=== PATIENT | female | born 1995 | race Caucasian/White ===

== ENCOUNTER → 2017-03-21 | Outpatient (CLI) | payer OTHER ==
--- NOTE | 2017-03-21 15:04 | CONS ---
CONSULTATION DATE OF SERVICE: 03/21/2017 21-year-old lady has been evaluated in the sleep center for significant excessive daytime sleepiness and for possible obstructive sleep apnea-hypopnea syndrome. HISTORY OF PRESENT ILLNESS/SLEEP WAKE EVALUATION: Patient usual sleep schedule on weekdays from 11:00 p.m. to 8:00 a.m. and on weekend from around 8:00 p.m. to 8 a.m. Sometimes she has problems with falling asleep, has TV set in bedroom. During the sleep she snores and wakes up from sleep every 2-3 hours with up to 2-3 episodes to nocturia. She may grind her teeth and wakes up with a dry mouth, panic attack, restless legs, sweating. In the morning she wakes up tired, falling asleep during the day, has problems with memory, concentration, depression, anxiety. Abie Sleepiness Scale significantly increased to 20. She feels sleepy even while she is driving the car. Positive history of hypnagogic hallucinations and possible cataplexy with numbness and tingling of her muscles in her face as a reaction on strong emotions and laughing. When she is taking naps, she may see weird dreams. PAST MEDICAL HISTORY: Positive for diabetes mellitus, bipolar, depression. SOCIAL HISTORY: Negative for smoking. Alcohol consumption occasional. FAMILY HISTORY: Hypertension, heart problems, hyperlipidemia, stroke, arthritis, asthma, sinus headaches, sleep apnea, snoring, in morning headaches, insomnia, acid reflux, diabetes, mental illness. MEDICATIONS: Different types of insulin, Zoloft, Abilify, Lamictal. PAST SURGICAL HISTORY: None. REVIEW OF SYSTEMS: No fevers No double vision. No recent chest pain. No shortness of breath. No abdominal pain. No bleeding episodes. No blood in urine. No seizure episodes. PHYSICAL EXAM: GENERAL:During physical exam, lady without distress. VITAL SIGNS: BP 136/72, HR 102, RR 16, height 5 foot 4, weight 220, BMI 37.7. Neck 15- 1/4 inch in circumference. Temperature is 98.1. Oxygen saturation at room air 98%. HEENT: PERRLA, EOMI. Evaluation of oropharynx showed moderately to severe low position of soft palate. Retrognathia 5 mm. Restriction of nasal breathing. NECK: Supple. No JVD. Thyroid is not palpable. LUNGS: clear to percussion and to auscultation. Good air exchange. No wheezing or rhonchi. HEART: S1, S2 regular. No murmurs, gallops or rubs. ABDOMEN: Slightly obese. Soft and nontender. Bowel sounds are present. No organomegaly appreciated. EXTREMITIES: No cyanosis or clubbing. [employer]: Awake, alert and oriented x3. Cranial nerves II through VII intact. There is no fasciculation or atrophy noted. No focal deficits observed. IMPRESSION: 1. Snoring, multiple awakenings from sleep, small oropharyngeal air space, retrognathia, restriction of nasal breathing, sleepiness, obesity, obstructive sleep apnea-hypopnea syndrome. 2. Positive history of hypnagogic hallucinations and cataplexy with the presence of significant excessive daytime sleepiness. Abie Sleepiness Scale is 20 dictating necessity to include hypersomnia including narcolepsy in the differential diagnosis. 3. Obesity, BMI 37.74. 4. Depression. 5. Bipolar. 6. Diabetes mellitus. PLAN: 1. Polysomnography for evaluation of patient's breathing during sleep. 2. CPAP/BiPAP titration if sleep study confirms obstructive sleep apnea-hypopnea syndrome. 3. Preferable position during sleep on the side. 4. No driving if patient feels any sleepiness. Patient is aware of civil and criminal liability for unsafe driving. 5. I will see patient for follow up visit to explain results of testing and following plan. 6. Additionally, multiple sleep latency test if sleep study will be negative for obstructive sleep apnea or hypopnea syndrome. Juan F Shukla MD, PhD, FAASM Diplomat of [employer] [facility] [place] MMODL / IJN: [id number] /
== END | disposition home or self-care (01) ==
LOC: SLEEP 13:10
PROVIDERS: ATTEND Internal Medicine
DX: G47.33 Obstructive sleep apnea (adult) (pediatric) (principal); E66.9 Obesity, unspecified; G47.10 Hypersomnia, unspecified; Z68.37 Body mass index [BMI] 37.0-37.9, adult; F32.9 Major depressive disorder, single episode, unspecified; E11.9 Type 2 diabetes mellitus without complications
CPT/HCPCS: 99211

== ENCOUNTER → 2019-07-27 | Outpatient (CLI) | payer OTHER ==
--- NOTE | 2019-07-27 22:58 | MR ---
EXAMINATION TYPE: MR brain wo/w con DATE OF EXAM: 07/27/2019 COMPARISON: MRI brain December 11, 2012 HISTORY: Left side weakness, dizziness, falling TECHNIQUE: Multiplanar, multisequence images of the brain and brainstem is performed without and with IV contras t, utilizing 9 mL intravenous Gadavist . FINDINGS: Diffusion weighted images demonstrate no evidence of a recent infarct or other diffusion ab normality. There is no extra-axial fluid collection or significant white matter signal abnormality. The ventricular system and cisternal spaces are normal in size and appearance. The brain volume is age appropriate. Midline structures demonstrate normal morphology. The craniocervical junction appears within normal limits. Post contrast images demonstrate no abnormal enhancement. The dural venous sinuses appear pa tent. Moderate mucosal thickening involving left ethmoid sinuses is present. Mild to moderate mucosal thickening involving inferior aspect bilateral maxillary sinuses on current study. Mild mucosal thic kening left frontal sinus. The globes are intact bilaterally. IMPRESSION: No evidence of a recent infarct. No suspicious white matter changes or enhancement. Chron ic paranasal sinus disease as detailed above otherwise unremarkable study.
== END | disposition home or self-care (01) ==
LOC: RADMRIMAIN 15:23
PROVIDERS: ATTEND Physician Assistant Medical
DX: R42 Dizziness and giddiness (principal); R53.1 Weakness; R29.6 Repeated falls
CPT/HCPCS: 70553; A9585